=== PATIENT | female | born 1995 | race Caucasian/White ===

== ENCOUNTER 2021-07-15 17:49 | Emergency (ER) | payer OTHER ==
[~2021-07-15 17:49] MED LIST: BACTRIM DS TAB1 EACH PO; BACTROBAN NASAL1 GM TOP
[2021-07-15 21:23] LABS: BASOPHIL 0.6 % (0-2); EOSINOPHIL 1.2 % (0-5); HCT 37.4 % (37.0-47.0); HGB 12.3 g/dl (12.5-16.0); LYMPHOCYTE 24.6 % (15-48); MCH 27.5 pg (25.0-31.0); MCHC 32.9 g/dL (32.0-36.0); MCV 83.5 fL (78.0-100.0); MONOCYTE 6.3 % (0-12); MPV 8.8 fL (6.0-9.5); NRBC 0; PLT 349 K/uL (150-400); RBC 4.48 M/uL (4.20-5.40); WBC 10.7 K/uL (4.0-10.5)
[2021-07-15 21:36] LABS: BUN/CREAT RATIO (CALC) 17.5 RATIO; CREATININE 0.97 mg/dL (0.51-0.95)
== END 2021-07-16 00:44 | disposition home or self-care (01) ==
LOC: FER 17:49
PROVIDERS: Emergency Medicine Emergency Medical Services
DX: S00.93XA Contusion of unspecified part of head, initial encounter (principal); S00.81XA Abrasion of other part of head, initial encounter; R55 Syncope and collapse; J45.909 Unspecified asthma, uncomplicated; Y04.0XXA Assault by unarmed brawl or fight, initial encounter
CPT/HCPCS: 36415; 70450; 80048; 85025; J1100; J1885; J7030; Q9967